=== PATIENT | female | born 1995 | race Two or more races ===

== ENCOUNTER 2021-05-13 13:46 | Emergency (ER) | payer OTHER ==
[~2021-05-13] VITALS: Ht 157.5 cm; Wt 86.2 kg
[2021-05-13] MEDS ORDERED: PRENATAL + DHA1 EAC1 PO (14:02)
[2021-05-13] MEDS ORDERED: PROMETRIUM200 MG PO (14:02)
[2021-05-13] MEDS ORDERED: ATARAX25 MG PO (16:25)
[2021-05-13] MEDS ORDERED: ALL DAY ALLERGY10 M3 PO (16:25)
[2021-05-13] MEDS ORDERED: TRIAMCINOLONE A15 G4 TOP (16:25)
== END 2021-05-13 16:34 | disposition home or self-care (01) ==
LOC: ER 13:46
DX: L98.9 Disorder of the skin and subcutaneous tissue, unspecified (principal)

== ENCOUNTER 2021-10-27 13:00 | Inpatient (IN) | payer OTHER ==
[~2021-10-27] VITALS: Ht 157.5 cm; Wt 2.7 kg
[~2021-10-27 13:00] MED LIST: ALL DAY ALLERGY10 M3 PO; ATARAX25 MG PO; PRENATAL + DHA1 EAC1 PO; PROMETRIUM200 MG PO; TRIAMCINOLONE A15 G4 TOP
[2021-10-30] MEDS ORDERED: PRENATAL CAPLE1 EAC1 PO (06:38)
[2021-10-30] MEDS ORDERED: PRENATA CHEWAB1 EACH PO (06:39)
[2021-11-02] MEDS ORDERED: IBUPROFEN800 MG PO (08:18)
== END 2021-11-02 13:21 | disposition home or self-care (01) | DRG 788 ==
LOC: O/R 10-30 05:23 → LDR 10-30 05:23 → O/R 10-30 12:13 → OB/GYN 10-30 14:33
PROVIDERS: ADMIT Specialist; ATTEND Specialist
PROC: 4A1HXCZ Monitoring of Products of Conception, Cardiac Rate, External Approach (ICD-10-PCS; 2021-10-30)
PROC: 10D00Z1 Extraction of Products of Conception, Low, Open Approach (ICD-10-PCS; principal; 2021-10-30 14:00)
DX: O76 Abnormality in fetal heart rate and rhythm complicating labor and delivery (principal); O99.820 Streptococcus B carrier state complicating pregnancy; Z3A.38 38 weeks gestation of pregnancy; Z37.0 Single live birth; Z20.822 Contact with and (suspected) exposure to COVID-19